=== PATIENT | female | born 1975 | race Two or more races ===

== ENCOUNTER 2024-07-28 20:52 | Emergency (ER) | payer MEDICAID, SELFPAY ==
[2024-07-28 20:52] VITALS: BMI 26.2
[2024-07-28 20:58] VITALS: BP 163/90; PULSE 93; RESP 18; TEMP 36.9; O2SAT 97
--- NOTE | 2024-07-28 21:06 | PD.EDRME ---
Rapid Medical Screening Exam [facility] Arrival date/time: 07/28/24 20:52 49F with history of DM presents to ED with 3 weeks of worsening painful abscess in perineum area. Patient was only given topical ABX by PCP. Chief Complaint: Fever Vital signs: Vital Signs Temperature 98.5 F 07/28/24 20:58 Pulse Rate 93 07/28/24 20:58 Respiratory Rate 18 07/28/24 20:58 Blood Pressure 163/90 H 07/28/24 20:58 Pulse Oximetry (%) 97 07/28/24 20:58 Oxygen Delivery Method Room Air 07/28/24 20:58
[2024-07-28 21:30] LABS: Lactate (Lactic Acid) 0.8 mMol/L (0.4-2.0)
--- NOTE | 2024-07-28 21:35 | PD.EDADULT ---
ED General RME/HPI General Chief complaint: Fever Stated complaint: FEVER Time Seen by Provider: 07/28/24 21:24 Arrival date/time: 07/28/24 20:52 RME / HPI RME / HPI narrative: 49F with history of DM presents to ED with 3 weeks of worsening painful swelling in perineum area/labial, right side, severity moderate with pain and tenderness. Patient was also noted to have on and off fever for the last few days. Patient was only given topical ABX by PCP. Related Data Home Medications ?Medication ?Instructions ?Recorded ?Confirmed benazepril 10 mg tablet 1 tab PO QDAY 05/05/22 07/28/24 empagliflozin 25 mg tablet 1 tab PO QDAY 05/05/22 07/28/24 (Jardiance) insulin glargine 100 unit/mL (3 30 unit subcut QDAY 05/05/22 07/28/24 mL) subcutaneous pen (Basaglar KwikPen U-100 Insulin) metformin 1,000 mg tablet 100 mg PO BID 09/25/22 07/28/24 semaglutide 0.25 mg or 0.5 mg (2 25 mg subcut QWEEK 09/25/22 07/28/24 mg/1.5 mL) subcutaneous pen injector (Ozempic) Previous Rx's ?Medication ?Instructions ?Recorded doxycycline hyclate 100 mg capsule 100 mg PO BID #14 caps 07/28/24 (Vibramycin) ibuprofen 800 mg tablet 800 mg PO Q8H PRN pain #30 tabs 07/28/24 Allergies Allergy/AdvReac Type Severity Reaction Status Date / Time No Known Allergies Allergy Verified 07/28/24 20:55 Review of Systems Review of Systems Narrative Review of Systems: Review of system reviewed and within normal limits except mentioned in HPI ED Exam Narrative Physical exam: VITAL SIGNS: Reviewed. GENERAL APPEARANCE: Alert and interactive, follows commands, no acute distress, HEAD AND FACE: Non-traumatic. ENT: PERRL, pink conjunctivitis, eyelid no trauma, Mucous membrane moist. NECK: Supple, nontender, no nuchal rigidity. CHEST: No tenderness, no crepitus, no paradoxical movement, no retractions. LUNGS: Clear, well ventilated, symmetric, no rales, no wheezing, no ronchi, no stridor, good breath sounds bilaterally. HEART: Regular rate, regular rhythm, no murmur, no gallops. ABDOMEN: Soft, positive bowel sounds, nondistended, no guarding, nontender, no rebound, no masses, RECTAL: Deferred. GENITAL: Genital exam was done by me with a female [employer] REPA[employer]ER around all the time, I notice is very expensive 2 x 3 cm swelling, fluctuant, right perineal area, labial area, no necrosis noted with tenderness NEUROLOGICAL: Gross motor function intact sensory function intact, Appropriate for age. MUSCULOSKELETAL: low back nontender, full range of motion. EXTREMITIES: Nontender, full range of motion. SKIN: Color pink, dry, no rash, no lacerations, no abrasions, no contusions. LYMPHATICS: Deferred. Course Quality Measures none Orders Category Date Time Status CT Screening NOW Care 07/28/24 21:05 Completed Insert IV NOW Care 07/28/24 21:05 Completed CBC Stat Lab 07/28/24 21:20 Completed CMP [Comprehensive Metabolic Panel] Stat Lab 07/28/24 21:20 Results HCG Qualitative,Urine Stat Lab 07/28/24 21:19 Completed Lactate (Lactic Acid) Stat Lab 07/28/24 21:20 Completed Procalcitonin Stat Lab 07/28/24 21:20 Results Clindamycin/Ns 600 mg Ivpb [Cleocin/Ns Ivpb] Med 07/28/24 21:48 Discontinued 600 mg in 50 ml IV X1 Lidocaine 1% Pf 5 ml [Xylocaine 1% Pf 5 ml] Med 07/28/24 22:00 Discontinued 20 ml INFL X1 ONE Vital Signs Vital signs: Vital Signs Temperature 98.5 F 07/28/24 20:58 Pulse Rate 93 07/28/24 20:58 Respiratory Rate 18 07/28/24 20:58 Blood Pressure 163/90 H 07/28/24 20:58 Pulse Oximetry (%) 97 07/28/24 20:58 Oxygen Delivery Method Room Air 07/28/24 20:58 Procedures -ED Abscess I/D Site: other (Right labial area) Sedation/analgesia: none Local Anesthetic: lidocaine 1% Amount of anesthesia used (mL): 10 Technique: incised with #11 blade Amount of fluid expressed (mL): 2 Irrigation: Yes Packing used?: plain Complications: pain MDM Patient data External records reviewed:: None Clinical information provided by:: none Social determinants that could affect healthcare access:: none Patient has the following chronic illnesses:: Diabetes mellitus How is presenting disease/condition affected by chronic disease/condition?: uneffected by Evaluation data The following diagnostics were reviewed and interpreted by me:: lab results Lab and/or radiology exams considered but not ordered:: None Interpretation Summary: Laboratory workup is significant for slight leukocytosis, otherwise unremarkable. Medications Medications considered but not ordered:: None Medication administrations:: Medication Administration History Discontinued Medications Clindamycin/Sodium Chloride (Cleocin/Ns Ivpb) 600 mg in 50 mls @ 100 mls/hr IV X1 ONE Stop: 07/28/24 22:17 Last Infusion: 07/28/24 22:55 Dose: Infused Documented By: Admin: 07/28/24 22:20 Dose: 100 mls/hr Documented By: CVL Lidocaine HCl (Lidocaine Inj Pf 1% 5 Ml Vial) 20 ml INFL X1 ONE Stop: 07/28/24 22:01 Last Admin: 07/28/24 22:56 Dose: 20 ml Documented By: CVL Comments: used by MOOK BROOKS Clindamycin IV and incision and drainage was done see procedure notes Consultations Consultation(s) initiated? (list below): No Diagnosis Differential Diagnosis ED Complaint MDM: Labial abscess, cellulitis, perineal abscess Most likely diagnosis given after review of the tests above:: Labial abscess Admission Indicated Admission indicated?: not indicated Explain why admission is indicated or not indicated:: Stable for discharge Admission Request Was there a request for admission?: No Disposition Plan Disposition Plan: Discharge Discharge Attestation Discharge Attestation: The patient and all family members were given an opportunity to ask questions and understood the discharge instructions. Discharge instructions specifically effects, indications for sooner follow up or return to the emergency department, and the expected course of current diagnosis. Patient condition: Stable Medical Decision Making MDM Narrative MDM Narrative: Patient was seen and examined by Dr. Mccray also my EDMD and in the bedside. Agree with the plan to do I&D. Differential Diagnosis Differential Diagnosis: Labial abscess, cellulitis, perineal abscess Lab Data 07/28/24 21:20 07/28/24 21:20 Labs: Lab Results 07/28/24 07/28/24 Range/Units 21:19 21:20 WBC 11.1 H (3.6-11.0) Thou/mm3 RBC 4.28 (4.00-5.20) Miln/mm3 Hgb 12.8 (12.0-16.0) g/dL Hct 37.4 (36.0-46.0) % MCV 87 (80-100) fL MCH 29.9 (25.0-35.0) pg MCHC 34.2 (31.0-37.0) g/dl RDW Std Deviation 39.7 (36.4-46.3) fL Plt Count 263 (140-440) Thou/mm3 Neut % (Auto) 68 (37-80) % Lymph % (Auto) 24 (10-50) % Harding % (Auto) 6 (0-12) % Eos % (Auto) 1 (0-10) % Baso % (Auto) 1 (0-2.5) % Neut # (Auto) 7.6 (1.8-7.7) Thou/mm3 Lymph # (Auto) 2.6 (1.0-4.8) Thou/mm3 Harding # (Auto) 0.6 (0.0-0.8) Thou/mm3 Eos # (Auto) 0.2 (0.0-0.5) Thou/mm3 Baso # (Auto) 0.1 (0.0-0.2) Thou/mm3 Immature Gran # (Auto) 0.03 H (0.00-0.00) Thou/mm3 Absolute Nucleated RBC 0.00 (0.00-0.00) Thou/mm3 Immature Gran % 0 (0-0) % Nucleated RBC % 0 (0) /100 WBC Sodium 141 (136-145) mMol/L Potassium 4.0 (3.4-5.1) mMol/L Chloride 108 H (98-107) mMol/L Carbon Dioxide 25.2 (20.0-31.0) mMol/L Anion Gap 8 (7-16) BUN 18 (9-23) mg/dL Creatinine 1.2 (0.6-1.3) mg/dL Estim Creat Clear Calc 48.3 L (>60) mL/min eGFR 55 L (60 - ) See Note BUN/Creatinine Ratio 15 (12-20) Ratio Glucose 300 H (74-106) mg/dL Calculated Osmolality 294 (275-295) Lactic Acid 0.8 (0.4-2.0) mMol/L Calcium 10.3 (8.3-10.6) mg/dL Corrected Calcium 10.3 H (8.5-10.1) mg/dL Total Bilirubin 0.5 (0.3-1.2) mg/dL AST 21 (0-34) U/L ALT 25 (10-49) U/L Alkaline Phosphatase 141 H (46-116) U/L Total Protein 7.8 (5.7-8.2) gm/dL Albumin 4.7 (3.5-5.0) gm/dL Globulin 3.1 (2.3-3.5) gm/dL Albumin/Globulin Ratio 1.5 (1.2-2.2) Urine HCG, Qual Negative Discharge Plan Plan Patient Disposition: HOME (Self Care) Disposition Comment: stable Prescriptions/Referrals Prescriptions/Med Rec: New doxycycline hyclate [Vibramycin] 100 mg capsule 100 mg PO BID Qty: 14 0RF ibuprofen 800 mg tablet 800 mg PO Q8H PRN (Reason: pain) Qty: 30 0RF No Action benazepril 10 mg tablet 1 tab PO QDAY Patient Comments: TOME DOROTHY TABLETA TODOS LOS D insulin glargine [Basaglar KwikPen U-100 Insulin] 100 unit/mL (3 mL) insulin pen 30 unit SUBCUT QDAY Patient Comments: INYECTE 50 UNIDADES DEBAJO DE LA PIEL DIARIO Jardiance 25 mg tablet 1 tab PO QDAY Patient Comments: TOME DOROTHY TABLETA TODOS LOS D Ozempic 0.25 mg or 0.5 mg(2 mg/1.5 mL) pen injector 25 mg SUBCUT QWEEK Patient Comments: INJECT 0.25 MG BAJO LA PIEL CADA SEMANA metformin 1,000 mg tablet 100 mg PO BID Referrals: Teresa Conley FNP [Primary Care Provider] - In 1 week Problem List Clinical Impression: Abscess of labia Patient/Caregiver Discharge Instructions Discharge Activity: activity as tolerated Education Materials: ED Abscess, Incision And Drainage Additional Instructions: Thank you for the opportunity for serving you today. You are stable for discharged . You are advised to: Follow-up with your PCP in 1 to 2 days Return to ED for worsening of symptoms Increase oral fluids Take medication as prescribed Return to emergency room in 2 days for repacking pf wound Print Language: [place] Stand Alone Forms: Madeline Award Info., Patient Portal Info Letter PA/LEAD DIE MOLDER Supervising Physician PA/LEAD DIE MOLDER Supervising Physician: MD Shazia
[2024-07-28 21:57] LABS: Basophils # (Auto) 0.1 Thou/mm3 (0.0-0.2); Basophils % (Auto) 1 % (0-2.5); Eosinophils # (Auto) 0.2 Thou/mm3 (0.0-0.5); Eosinophils % (Auto) 1 % (0-10); Hematocrit 37.4 % (36.0-46.0); Hemoglobin 12.8 g/dL (12.0-16.0); Immature Granulocytes % (Auto) 0 % (0-0); Immature Granulocytes Auto 0.03 Thou/mm3 (0.00-0.00); Lymphocytes # (Auto) 2.6 Thou/mm3 (1.0-4.8); Lymphocytes % (Auto) 24 % (10-50); Mean Corpuscular HGB Conc 34.2 g/dl (31.0-37.0); Mean Corpuscular Hemoglobin 29.9 pg (25.0-35.0); Mean Corpuscular Volume 87 fL (80-100); Monocytes # (Auto) 0.6 Thou/mm3 (0.0-0.8); Monocytes % (Auto) 6 % (0-12); Neutrophils # (Auto) 7.6 Thou/mm3 (1.8-7.7); Neutrophils % (Auto) 68 % (37-80); Nucleated Red Blood Cell % 0 /100 WBC (0); Platelet Count 263 Thou/mm3 (140-440); RDW Standard Deviation 39.7 fL (36.4-46.3); Red Blood Count 4.28 Miln/mm3 (4.00-5.20); White Blood Count 11.1 Thou/mm3 (3.6-11.0)
[2024-07-28 22:02] LABS: HCG Qualitative,Urine Negative
[2024-07-28] MEDS: CLINDAMYCIN/NS 600 MG IVPB 600 MG/50 ML BAG 100 MG IV (22:20)
[2024-07-28 22:25] LABS: Alanine Aminotransferase 25 U/L (10-49); Albumin, Serum 4.7 gm/dL (3.5-5.0); Albumin/Globulin Ratio 1.5 (1.2-2.2); Alkaline Phosphatase 141 U/L (46-116); Anion Gap 8 (7-16); Aspartate Amino Transferase 21 U/L (0-34); BUN/Creatinine Ratio 15 Ratio (12-20); Bilirubin,Total 0.5 mg/dL (0.3-1.2); Blood Urea Nitrogen 18 mg/dL (9-23); Calcium 10.3 mg/dL (8.3-10.6); Calcium (Corrected) 10.3 mg/dL (8.5-10.1); Carbon Dioxide 25.2 mMol/L (20.0-31.0); Chloride 108 mMol/L (98-107); Creatinine (Component) 1.2 mg/dL (0.6-1.3); Estimated Creatinine Clearance 48.3 mL/min (>60); Globulin 3.1 gm/dL (2.3-3.5); Glucose 300 mg/dL (74-106); Osmolality,Calculated 294 (275-295); Sodium 141 mMol/L (136-145); Total Protein 7.8 gm/dL (5.7-8.2); eGFR 55 See Note
[2024-07-28] MEDS: LIDOCAINE INJ PF 1% 5 ML VIAL 20 ML INFL (22:56)
[2024-07-28 23:04] VITALS: BP 145/80; PULSE 78; RESP 18; TEMP 37.4; O2SAT 100
[2024-07-29 14:53] LABS: Procalcitonin < 0.04 ng/ml (0.0-0.49)
== END 2024-07-28 23:06 | disposition home or self-care (01) ==
PROVIDERS: Physician Assistant; Emergency Provider Emergency Medicine; PCP Nurse Practitioner Family
DX: N76.4 Abscess of vulva (principal)
CPT/HCPCS: 56405; 36415; 80053; 81025; 83605; 84145; 85025; 96365; 99284; J3490; S0077; J0737

== ENCOUNTER → 2025-09-25 | Outpatient (CLI) | payer MEDICAID, SELFPAY ==
--- NOTE | 2025-09-25 | XR_ITS ---
Examination: Wrist, right 3 views Technique: Wrist AP, oblique, lateral 3 views Date and time of exam: September 25, 2025, 1144 hours INDICATIONS: Right wrist pain 2 months FINDINGS: Mild to moderate osteopenia. No fracture or dislocation Minimal narrowing radiocarpal navicular trapezium and first carpal metacarpal joints IMPRESSION: Mild osteoarthritis
--- NOTE | 2025-09-25 | XR_ITS ---
Examination: Hand, right 3 views Technique: Hand AP, oblique, lateral 3 views Date and time of exam: September 25, 2025, 11:44 a.m. INDICATIONS: Right hand pain 2 months. FINDINGS: Mild osteopenia. No fracture or dislocation. No erosive or other significant arthritic change IMPRESSION: No erosive or other significant arthritic change
== END | disposition home or self-care (01) ==
PROVIDERS: PCP Physician Assistant; Referring Provider Nurse Practitioner Gerontology; Visit Provider Nurse Practitioner Gerontology
DX: M79.641 Pain in right hand (principal); M19.031 Primary osteoarthritis, right wrist
CPT/HCPCS: 73110; 73130